=== PATIENT | female | born 1945 | race Caucasian/White ===

== ENCOUNTER 2022-10-05 15:25 | Emergency (ER) | payer MEDICARE, OTHER ==
[~2022-10-05] VITALS: Ht 165.1 cm; Wt 77.0 kg
[~2022-10-05 15:25] MED LIST: ACET-2319 PO; ALBU90AE2 IH; ASPI-1071 PO; BUDE10.2 PO; CLOP75TA15 PO; HYDR25TA4 PO; LEVO75TA7 PO; LISI40TA13 PO; MELATONIN10 MG PO; PRAV40TA3 PO
[2022-10-05] MEDS ORDERED: albuterol 2.5 MG/3 ML nebule NEB ONE (15:55)
[2022-10-05 16:31] VITALS: TEMP 98.9
[2022-10-05 16:40] VITALS: PULSE 82; RESP 16; O2SAT 94
[2022-10-05 16:42] VITALS: PULSE 81; RESP 18; O2SAT 98
[2022-10-05 16:48] LABS: BASOPHILS % (AUTO) 0.4 % (0-1); EOSINOPHILS % (AUTO) 0.4 % (0-6); HEMATOCRIT 33.1 % (35.0-45.0); HEMOGLOBIN 10.8 g/dl (12.0-16.0); LYMPHOCYTES # (AUTO) 0.3 X10'3 (1.1-4.8); LYMPHOCYTES % (AUTO) 5.3 % (21-51); MEAN CORPUSCULAR HEMOGLOBIN 27.6 PG (27.0-31.0); MEAN CORPUSCULAR HGB CONC 32.6 g/dL (33.0-36.5); MEAN CORPUSCULAR VOLUME 84.6 FL (78-98); MEAN PLATELET VOLUME 9.2 FL (7.4-10.4); MONOCYTES # (AUTO) 0.5 X10'3 (0-0.9); MONOCYTES % (AUTO) 9.3 % (2-12); NEUTROPHILS # (AUTO) 4.8 X10'3 (1.8-7.7); NEUTROPHILS % (AUTO) 84.6 % (42-75); PLATELET COUNT 145 X10'3 (140-440); RED BLOOD COUNT 3.92 X10'6 (4.20-5.60); RED CELL DISTRIBUTION WIDTH 15.1 % (11.5-14.5); WHITE BLOOD COUNT 5.7 X10'3 (4.5-11.0)
[2022-10-05 16:58] LABS: ALANINE AMINOTRANSFERASE 13 U/L (12-78); ALBUMIN 3.2 G/DL (3.4-5.0); ALBUMIN/GLOBULIN RATIO 0.9 (1.1-1.5); ALKALINE PHOSPHATASE 102 IU/L (46-116); ANION GAP 9 (8-16); ASPARTATE AMINO TRANSFERASE 15 U/L (10-37); BILIRUBIN,TOTAL 1.4 MG/DL (0.1-1.0); BLOOD UREA NITROGEN 18 MG/DL (7-18); BUN/CREATININE RATIO 16.7 (10.0-20.0); CHLORIDE 100 MMOL/L (99-107); CREATININE 1.08 MG/DL (0.40-0.90); GLUCOSE 109 MG/DL (70-104); POTASSIUM 4.3 MMOL/L (3.5-5.1); SODIUM 134 MMOL/L (135-145); TOTAL CARBON DIOXIDE 25.2 MMOL/L (24-32); TOTAL PROTEIN 6.6 G/DL (6.4-8.2); eGFR 49 ML/MIN
[2022-10-05] MEDS ORDERED: dexamethasone sod phosphate 10mg/ml inj IV STA (17:10)
[2022-10-05] MEDS ORDERED: ALBU8HFA PO (17:25)
[2022-10-05] MEDS ORDERED: AZIT250T PO (17:25)
[2022-10-05] MEDS ORDERED: PRED20TA PO (17:25)
[2022-10-05] MEDS ORDERED: BUDE180A INH (17:25)
[2022-10-05 17:52] LABS: CLARITY,URINE SLIGHTLY CLOUDY (Clear); COLOR,URINE YELLOW (Yellow); GLUCOSE, URINE NEGATIVE (Neg); KETONES,URINE NEGATIVE (Neg); LEUKOCYTE ESTERASE ,URINE TRACE (Neg); NITRITES, URINE NEGATIVE (Neg); OCCULT BLOOD,URINE SMALL (Neg); PROTEIN,URINE TRACE mg/dl (Neg); UROBILINOGEN,URINE 0.2 E.U/dL (0.2-1.0)
[2022-10-05 17:58] VITALS: BP 146/54; PULSE 89; RESP 20; O2SAT 92
[2022-10-05 18:13] LABS: BACTERIA,URINE FEW /HPF (Neg); SQUAMOUS EPITHELIAL CELL,UR FEW /LPF (FEW); TRANSITIONAL EPI CELLS,URINE FEW /HPF
[2022-10-05 18:37] LABS: UA COLLECTION TYPE NON-SPECIFIED
== END 2022-10-05 18:00 | disposition home or self-care (01) ==
LOC: ER 15:26
DX: U07.1 COVID-19 (principal); J44.9 Chronic obstructive pulmonary disease, unspecified; Z91.041 Radiographic dye allergy status; Z88.6 Allergy status to analgesic agent; Z79.82 Long term (current) use of aspirin; Z79.899 Other long term (current) drug therapy
CPT/HCPCS: 36415; 71045; 80053; 81001; 83880; 85025; 87088; 94640; 96374; 99284; J1100; 94760

== ENCOUNTER 2023-09-08 14:52 | Emergency (ER) | payer MEDICARE, OTHER ==
[~2023-09-08] VITALS: Ht 160 cm; Wt 70.0 kg
[~2023-09-08 14:52] MED LIST changes: -ALBU90AE2 IH; +ALBU90AE3 IH; +BUDE180A INH
[2023-09-08 14:54] VITALS: TEMP 98
[2023-09-08 15:34] LABS: BASOPHILS # (AUTO) 0.1 X10'3 (0-0.2); BASOPHILS % (AUTO) 1.3 % (0-1); EOSINOPHILS # (AUTO) 0.1 X10'3 (0-0.9); EOSINOPHILS % (AUTO) 1.1 % (0-6); HEMATOCRIT 31.2 % (35.0-45.0); LYMPHOCYTES # (AUTO) 1.1 X10'3 (1.1-4.8); LYMPHOCYTES % (AUTO) 17.5 % (21-51); MEAN CORPUSCULAR HEMOGLOBIN 28.1 PG (27.0-31.0); MEAN CORPUSCULAR HGB CONC 32.2 g/dL (33.0-36.5); MEAN CORPUSCULAR VOLUME 87.2 FL (78-98); MEAN PLATELET VOLUME 9.1 FL (7.4-10.4); MONOCYTES # (AUTO) 0.5 X10'3 (0-0.9); MONOCYTES % (AUTO) 7.9 % (2-12); NEUTROPHILS # (AUTO) 4.7 X10'3 (1.8-7.7); NEUTROPHILS % (AUTO) 72.2 % (42-75); PLATELET COUNT 166 X10'3 (140-440); RED BLOOD COUNT 3.58 X10'6 (4.20-5.60); RED CELL DISTRIBUTION WIDTH 17.6 % (11.5-14.5); WHITE BLOOD COUNT 6.5 X10'3 (4.5-11.0)
[2023-09-08 15:53] LABS: ALBUMIN 3.4 G/DL (3.4-5.0); ANION GAP 9 (8-16); BLOOD UREA NITROGEN 22 MG/DL (7-18); BUN/CREATININE RATIO 21.4 (10.0-20.0); CALCIUM 8.8 MG/DL (8.5-10.1); CHLORIDE 108 MMOL/L (99-107); CREATININE 1.03 MG/DL (0.40-0.90); GLUCOSE 104 MG/DL (70-104); LIPASE 38 U/L (16-77); MAGNESIUM 2.1 MG/DL (1.5-2.4); SODIUM 142 MMOL/L (135-145); TOTAL CARBON DIOXIDE 24.9 MMOL/L (24-32); eCRCL 37 ML/MIN; eGFR 52 ML/MIN
[2023-09-08] MEDS ORDERED: APIX5TAB3 PO (16:10)
[2023-09-08] MEDS ORDERED: MELO-102 PO (16:10)
[2023-09-08] MEDS ORDERED: ATOR40TA PO (16:10)
[2023-09-08] MEDS: normal saline 1000ML IV soln IVB ONE (16:19)
[2023-09-08 16:40] LABS: BILIRUBIN,URINE SMALL (Neg); CLARITY,URINE CLOUDY (Clear); COLOR,URINE YELLOW (Yellow); GLUCOSE, URINE 100 mg/dl (Neg); KETONES,URINE TRACE mg/dl (Neg); LEUKOCYTE ESTERASE ,URINE MODERATE (Neg); NITRITES, URINE POSITIVE (Neg); OCCULT BLOOD,URINE MODERATE (Neg); PH,URINE 5.5 (4.8-8.0); PROTEIN,URINE 100 mg/dl (Neg); UROBILINOGEN,URINE 0.2 E.U/dL (0.2-1.0)
[2023-09-08 16:43] LABS: UA COLLECTION TYPE VOIDED
[2023-09-08 16:46] LABS: SQUAMOUS EPITHELIAL CELL,UR MANY /LPF (FEW); WBC,URINE TNTC /HPF (0-4)
[2023-09-08 16:48] LABS: BACTERIA,URINE 3+ /HPF (Neg)
[2023-09-08 16:49] LABS: RBC,URINE 20-50 /HPF (0-2)
[2023-09-08] MEDS ORDERED: FOSFOMYCIN TROMETHAMINE 3 GM PACKET PO ONE (17:15)
[2023-09-08] MEDS: lisinopril 10 MG tablet PO ONE (17:34)
[2023-09-08] MEDS: sulfamethoxazole/trimethoprim DS (800/160mg) tablet PO ONE (17:37)
[2023-09-08] MEDS: phenazopyridine 100mg tablet PO ONE (17:40)
[2023-09-08] MEDS ORDERED: PHEN-786 PO (17:47)
[2023-09-08] MEDS ORDERED: SULF1TAB49 PO (17:47)
[2023-09-08 18:01] VITALS: BP 222/92; PULSE 65; RESP 16; O2SAT 93
== END 2023-09-08 18:00 | disposition home or self-care (01) ==
LOC: ER 14:53
DX: N39.0 Urinary tract infection, site not specified (principal); I10 Essential (primary) hypertension; Z91.041 Radiographic dye allergy status; Z79.899 Other long term (current) drug therapy
CPT/HCPCS: 36415; 71045; 80048; 81001; 83690; 83735; 84484; 85025; 93005; 99285; J7030

== ENCOUNTER 2024-11-03 11:23 | Emergency (ER) | payer MEDICARE, OTHER ==
[~2024-11-03] VITALS: Ht 160 cm; Wt 68.0 kg
[~2024-11-03 11:23] MED LIST changes: +APIX5TAB3 PO; -ASPI-1071 PO; +ATOR40TA PO; -BUDE180A INH; +BUDE180A5 INH; -CLOP75TA15 PO; -LISI40TA13 PO; +LISI40TA20 PO; +MELO-102 PO; +PHEN-786 PO; -PRAV40TA3 PO
[2024-11-03 11:28] VITALS: TEMP 97.8
--- NOTE | 2024-11-03 12:38 | Physician Documentation ---
History of Present Illness ~ Chief Complaint: Hip pain Stated Complaint: FALL ON THINNERS Time Seen by MD: 11:42 Primary Medical Doctor: MD Douglas Larry Mcclellan Source: patient, family Mode of Arrival: POV, Ambulatory Exam Limitations: no limitations HPI Patient who had a mechanical fall yesterday. Here with right hip and right knee pain. She is still walking on it. She does take blood thinners for history of stroke. Also has AFib. Daughter is at bedside who is an RN. Tetanus within 5 Years?: Yes Medication Reconciliation Allergies: Coded Allergies: iodine (Verified Allergy, Intermediate, 11/03/24) Scheduled Apixaban (Eliquis), 1 TAB PO DAILY, (Reported) Atorvastatin Calcium* (Lipitor*), 1 TAB PO DAILY, (Reported) Budesonide (Pulmicort Flexhaler), 2 PUFFS INH Q12H Hydrochlorothiazide (Hydrochlorothiazide), 1 TAB PO DAILY, (Reported) Levothyroxine Sodium (Levothyroxine Sodium), 1 TAB PO DAILY, (Reported) Lisinopril* (Lisinopril*), 0.5 TAB PO DAILY, (Reported) Meloxicam (Meloxicam), 1 TAB PO DAILY, (Reported) Scheduled PRN Acetaminophen/Dp-Hydram Hcl (Tylenol Pm), Unknown Dose PO HS PRN for sleep, (Reported) Albuterol Sulfate (Proair Digihaler), 2 PUFFS IH for cough & congestion, (Reported) Budesonide/Formoterol Fumarate (Symbicort 160-4.5 Mcg Inhaler), 2 PUFFS PO BID PRN for cough & congestion, (Reported) Melatonin (Melatonin), Unknown Dose PO HS PRN for sleep, (Reported) Phenazopyridine Hcl (Pyridium tablet), 1 TAB PO Q8H PRN for urinary burning Past Medical History Past Medical History: Hypertension, Breast Cancer Past Surgical History: noncontributory Alcohol Use: None Drug Use: none Review of Systems All Other Systems at this time: Reviewed and Negative Physical Exam Vital Signs: Temperature: 97.8, Heart Rate: 82, Respiratory Rate: 16, BP: 183/63, Pulse Oximetry: 96, Weight: 67.950 Oxygen Flow Rate: 0 General Appearance: alert Head: no evidence of injury Face Old bruising to the anterior face from a fall 7 weeks ago. Pupils/EOM/Fundus: PERRLA, EOM intact Neck: full range of motion Respiratory: no respiratory distress Chest: normal inspection Cardiovascular: normal peripheral pulses Extremities Right leg: Knee with mild anterior ecchymosis but nontender, negative valgus and varus, right hip is nontender without obvious deformity, no shortening or external rotation of the leg Progress Results/Orders Results/Orders Orders - MANDIE QUINTANA MD Hip Unilateral 2 Views (11/03/24 11:49) Knee Limited (Ap/Lat) (11/03/24 11:49) Completed Orders - MANDIE QUINTANA MD Hip Unilateral 2 Views (11/03/24 11:49) Knee Limited (Ap/Lat) (11/03/24 11:49) Vital Signs 11/03/24 11/03/24 11/03/24 11/03/24 11:28 11:37 12:51 12:58 Temp 97.8 Pulse 82 75 70 Resp 16 16 16 16 B/P (MAP) 183/63 154/112 (126) 145/55 (85) Pulse Ox 96 96 98 O2 Flow Rate 0 0 0 Medical Decision Making Additional Comment X-ray of hip and knee are negative for fracture. Independently reviewed by me and confirmed by Radiology. Likely hips sprain and knee contusion. Discharged home in good condition with family. Follow up with PCP in 7-10 days if not improving or return here if new or worsening symptoms. Departure Disposition: 01 HOME / SELF CARE / HOMELESS Impression: Primary Impression: Sprain of right hip Qualified Codes: S73.101A - Unspecified sprain of right hip, initial encount er Additional Impression: Contusion of right knee Qualified Codes: S80.01XA - Contusion of right knee, initial encounter Condition: Stable Discharge Instructions: Hip Sprain Additional Instructions: Follow up with your doctor in 1-2 weeks if not improving. Return if worsening. Referrals: NO PRIMARY CARE PROVIDER (PCP) Signature Scribe Signature: No scribe used Attestation: No scribe used MANDIE QUINTANA MD Nov 03, 2024 12:38
--- NOTE | 2024-11-03 12:46 | RADIOLOGY REPORT ---
EXAM: DI KNEE LIMITED (AP/LAT) CLINICAL INDICATION: RIGHT KNEE PAIN AFTER FALL TECHNIQUE: DI KNEE LIMITED (AP/LAT) Comparison: None FINDINGS/IMPRESSION: There is no evidence of acute fracture or dislocation. Severe right knee tricompartmental joint space narrowing. The alignment is anatomical. There is no radiopaque foreign body.
--- NOTE | 2024-11-03 12:47 | RADIOLOGY REPORT ---
Right HIP RADIOGRAPH. CLINICAL INDICATION: RIGHT HIP PAIN AFTER FALL TECHNIQUE: 4 views of the right hip were obtained. FINDINGS: There is no evidence of fracture, subluxation or dislocation. Moderate right hip osteoarthr itis. The bony mineralization is normal.No radiopaque foreign body is identified. IMPRESSION: 1. No evidence of acute bony injury.
[2024-11-03 13:05] VITALS: BP 145/55; PULSE 72; RESP 16; O2SAT 98
== END 2024-11-03 13:09 | disposition home or self-care (01) ==
LOC: ER 11:24
DX: S73.101A Unspecified sprain of right hip, initial encounter (principal); S80.01XA Contusion of right knee, initial encounter; I10 Essential (primary) hypertension; I48.91 Unspecified atrial fibrillation; Z79.01 Long term (current) use of anticoagulants; Z85.3 Personal history of malignant neoplasm of breast; Z86.73 Personal history of transient ischemic attack (TIA), and cerebral infarction without residual deficits; Z88.8 Allergy status to other drugs, medicaments and biological substances; W18.39XA Other fall on same level, initial encounter; Y93.89 Activity, other specified; Y92.89 Other specified places as the place of occurrence of the external cause; Y99.8 Other external cause status
CPT/HCPCS: 73502; 73560; 99284

== ENCOUNTER 2024-12-07 09:36 | Emergency (ER) | payer MEDICARE ==
[~2024-12-07] VITALS: Ht 160 cm; Wt 69.9 kg
--- NOTE | 2024-12-07 09:52 | ELECTROCARDIOGRAPH REPORT ---
[facility] Test Date: 2024-12-07 Test Time: 09:49:21 Pat Name: MAE CHAVEZ Department: [facility]- Patient ID: [id number] Room: Gender: F Design Editor: : 1945 Requested By: BECK JAMESON Order Number: [id number] Reading MD: Dr. Rigoberto Leal Measurements Intervals [place] Rate: 72 P: 85 AL: 165 QRS: 98 QRSD: 149 T: 127 QT: 459 QTc: 503 Interpretive Statements Sinus rhythm RBBB and LPFB Abnormal T, consider ischemia, lateral leads Baseline wander in lead(s) II,aVF Electronically Signed On 12-07-2024 21:39:[address] Rigoberto Leal Please click the below link to view image of tracing.
--- NOTE | 2024-12-07 10:11 | RADIOLOGY REPORT ---
EXAM: CT CT HEAD INDICATION: fall on blood thinner TECHNIQUE: CT of the head without intravenous contrast. Radiation Dose : 1. Head: CT Dose: CTDI volume is 50.8 mGy. Dose-length product is 883 mGy*cm The dose indicators for CT are the volume Computed Tomography (CT) Dose Index (CTDIvol) and the Dose Length Product (DLP), and are measured in units of mGy and mGy-cm, respectively. These indicators are not patient dose, but values generated from the CT scanner acquisition factors. The report includes radiation exposure data for exposures received during this examination. COMPARISON: CT CT CERVICAL SPINE on DOS: 12/07/24, CT CT FACIAL BONES/SOFT TISSUE on DOS: 12/07/24, MRI HEAD on DOS: 05/01/20, CT STROKE ALERT on DOS: 04/30/20 FINDINGS: There is no evidence of acute intracranial hemorrhage, extra-axial collection, mass effect, midline shift, herniation or hydrocephalus. The ventricles, sulci and cisterns are age appropriate. The gilmore-white differentiation is intact. Patchy periventricular and subcortical white matter hypoattenuation is nonspecific but may be related to small vessel ischemic disease. The visualized paranasal sinuses and mastoid air cells are clear. The surrounding soft tissues and osseous structures are unremarkable. IMPRESSION: No acute intracranial abnormality. Radiation optimization: All CT scans at this facility use at least one of these dose optimization techniques: automated exposure control mA and/or kV adjustment per patient size (includes targeted exams where dose is matched to clinical indication) or iterative reconstruction.
--- NOTE | 2024-12-07 10:23 | RADIOLOGY REPORT ---
EXAM: CT CT CERVICAL SPINE INDICATION: fall on blood thinner EXAM DATE: 12/07/2024 09:53 AM COMPARISON: None. TECHNIQUE: Multiple axial CT images of the cervical spine were obtained using bone algorithm. Sagittal and coronal reformatting was done. Bone and soft tissue windows were reviewed. Radiation Dose Information: CT Dose: CTDI volume is 20.4 mGy. Dose-length product is 410.4 mGy*cm FINDINGS: There is 4 mm anterolisthesis at C4-C5. Reversal of the cervical lordosis is present. No acute cervical spine fracture is identified. The vertebral body heights are intact. No suspicious osseous lesions are identified. There is multilevel intervertebral disc space narrowing, facet and uncovertebral hypertrophy. No significant spinal stenosis. Multilevel neural foraminal stenosis particularly on the right at C4-C5. There is no prevertebral soft tissue swelling. IMPRESSION: 1. No
[2024-12-07 10:29] LABS: MEAN PLATELET VOLUME 7.6 FL (7.4-10.4); RED CELL DISTRIBUTION WIDTH 15.5 % (11.5-14.5)
[2024-12-07 10:43] LABS: CREATININE 0.81 MG/DL (0.40-0.90); TOTAL CARBON DIOXIDE 27.3 MMOL/L (24-32); eCRCL 46 ML/MIN; eGFR 68 ML/MIN
[2024-12-07 10:44] LABS: APTT 31 SECONDS (22-32); INR 1.0 INR
--- NOTE | 2024-12-07 10:49 | RADIOLOGY REPORT ---
CLINICAL INFORMATION: Fall injury. Trauma. TECHNIQUE: Axial CT images of the maxillofacial region were obtained without contrast. Coronal and sagittal reformatted images were obtained, reviewed, and stored. One or more of the following dose reduction techniques were used: Automated exposure control. Adjustment of mA and/or kV according to patient size. CTDIvol = 54.61 mGy DLP = 932.74 mGy-cm COMPARISON: No prior maxillofacial CT. FINDINGS: The pterygoid plates and zygomatic arches are intact. Sinus daley and orbital daley are intact. Nasal bones and mandible are intact. No evidence of facial bone fracture. No acute abnormality identified in the orbits. Globes and orbital structures appear intact. No periorbital or orbital hemorrhage. No significant proptosis. Bilateral lens prostheses incidentally noted. Paranasal sinuses are clear. No significant soft tissue abnormality identified. IMPRESSION: 1. No evidence of acute facial bone fracture. 2. No other acute abnormality identified.
--- NOTE | 2024-12-07 10:51 | RADIOLOGY REPORT ---
CHEST RADIOGRAPH Indication: CP Technique: Single frontal view of the chest was obtained COMPARISON: DI CHEST,SINGLE VIEW on DOS: 09/08/23, DI CHEST,SINGLE VIEW on DOS: 10/05/22, CHEST,SINGLE VIEW on DOS: 04/30/20 FINDINGS: Lines and Tubes: None Lungs: Clear Pleura: No effusion. No pneumothorax. Cardiomediastinal contours: Unremarkable Bones: Unremarkable IMPRESSION: No acute disease.
[2024-12-07] MEDS: metoclopramide 5 mg/ml inj IV ONE (10:52)
--- NOTE | 2024-12-07 10:52 | RADIOLOGY REPORT ---
CLINICAL INDICATION: LEFT KNEE PAIN TECHNIQUE: DI KNEE, COMP 4 VW MIN left Comparison: DI KNEE LIMITED (AP/LAT) on DOS: 11/03/24 FINDINGS/IMPRESSION: : There is no evidence of acute fracture or dislocation. Soft tissues are unremarkable. Left knee arthroplasty.
[2024-12-07] MEDS: morphine 4 MG/ML inj SYRINge IV ONE (10:53)
[2024-12-07 10:54] LABS: PRO BRAIN NATRIURETIC PEPTIDE 2625 PG/ML (0-450)
[2024-12-07 10:59] VITALS: TEMP 98.4
[2024-12-07] MEDS ORDERED: LIDOcaine 1% w/epiNEPHrine 1:200,000 30ml vial SQ ONE (12:10)
[2024-12-07] MEDS: LIDOcaine 1% W/epiNEPHrine 1:100,000 20ml vial SQ ONE (12:19)
--- NOTE | 2024-12-07 14:21 | Physician Documentation ---
History of Present Illness ~ Chief Complaint: Trauma Level 2 Stated Complaint: FALL HEAD STRIKE Time Seen by MD: 10:00 OK to notify your PCP?: Yes Primary Medical Doctor: MD Misael Mcclellan Mode of Arrival: EMS HPI 79-year-old female with a history of taking Eliquis for stroke in 2020, hypertension hypothyroid and dyslipidemia was brought to the emergency room by ambulance because she fell ground level after left knee gave way. No lots of consciousness. Left side of the face has skin tear and laceration. No neck pain. The patient told me that she did not pass out. She has been having frequent falls. Tetanus within 5 years?: Yes Medication Reconciliation Allergies: Coded Allergies: iodine (Verified Allergy, Intermediate, 11/03/24) Scheduled Apixaban (Eliquis), 1 TAB PO DAILY, (Reported) Atorvastatin Calcium* (Lipitor*), 1 TAB PO DAILY, (Reported) Budesonide (Pulmicort Flexhaler), 2 PUFFS INH Q12H Hydrochlorothiazide (Hydrochlorothiazide), 1 TAB PO DAILY, (Reported) Levothyroxine Sodium (Levothyroxine Sodium), 1 TAB PO DAILY, (Reported) Lisinopril* (Lisinopril*), 0.5 TAB PO DAILY, (Reported) Meloxicam (Meloxicam), 1 TAB PO DAILY, (Reported) Scheduled PRN Acetaminophen/Dp-Hydram Hcl (Tylenol Pm), Unknown Dose PO HS PRN for sleep, (Reported) Albuterol Sulfate (Proair Digihaler), 2 PUFFS IH for cough & congestion, (Reported) Budesonide/Formoterol Fumarate (Symbicort 160-4.5 Mcg Inhaler), 2 PUFFS PO BID PRN for cough & congestion, (Reported) Hydrocodone Bit/Acetaminophen 5/325 MG ([place] 5/325 MG), 1 TAB PO Q6H PRN for pain Hydrocodone Bit/Acetaminophen 5/325 MG ([place] 5/325 MG), 1-2 TAB PO Q4HPRN PRN for pain Melatonin (Melatonin), Unknown Dose PO HS PRN for sleep, (Reported) Phenazopyridine Hcl (Pyridium tablet), 1 TAB PO Q8H PRN for urinary burning Past Medical History Past Medical History: Hypertension, Breast Cancer Past Surgical History: noncontributory Alcohol Use: None Drug Use: none Review of Systems ROS As stated above in the HPI, otherwise all systems are reviewed and negative. Physical Exam Vital Signs: Temperature: 98.4, Source: Oral, Heart Rate: 79, Respiratory Rate: 18, BP: 171/70, Pulse Oximetry: 97, Weight: 70.200 Oxygen Flow Rate: 0 Physical Exam Reviewed vital signs and they are well within normal range. Const: Not in acute cardiopulmonary distress but in fair amount of pain. Head: There is laceration and skin tear in the left side of the forehead and cheek. Eyes: Normal Conjunctiva, JUAN EOMI ENT: Normal External Ears, Nose and Mouth. Mucous membrane Neck: Full range of motion. No meningismus Resp: Clear to auscultation bilaterally. Normal work of breathing Cardio: Regular rate and rhythm, no murmurs. Skin well perfused, normal heart rate Abd: Soft, non-tender, non-distended. Normal bowel sounds. No rebound or guarding Skin: No petechiae or rashes. Warm and dry Back: No midline or flank tenderness Ext: No cyanosis, or edema, abrasion and contusion over the front of the knee. Left side. Range of movement is good. Neuro: Awake and alert Psych: Normal Mood and Affect Progress Results/Orders Results/Orders Orders - BECK JAMESON MD Chest,Single View (12/07/24 09:45) Monitor (12/07/24 09:45) Saline Lock (12/07/24 09:45) Oxygen (12/07/24 09:45) Electrocardiogram (12/07/24 09:45) Ct Head (12/07/24 09:45) Ct Cervical Spine (12/07/24 09:45) Knee, Complete (12/07/24 09:45) Completed Orders - BECK JAMESON MD Chest,Single View (12/07/24 09:45) Cbc/Diff (12/07/24 09:45) PBNP (12/07/24 09:45) Electrocardiogram (12/07/24 09:45) Ct Head (12/07/24 09:45) Ct Cervical Spine (12/07/24 09:45) Knee, Complete (12/07/24 09:45) PTT (12/07/24 09:59) Pt Inr (12/07/24 09:59) CMP (12/07/24 09:59) Morphine 4mg/Ml Inj. (Morphine Inj.) (12/07/24 10:40) Metoclopramide Inj (Reglan Inj) (12/07/24 10:40) Lidocaine 1% W/Epi 1:100,000 (Xylocaine (12/07/24 12:20) Ceftriaxone/K2p-Inamlfpn 1gm (Rocephin 1 (12/07/24 14:30) Hydrocodone/Apap 10/325 ([place] 10/325mg (12/07/24 14:30) Laboratory Tests Test 12/07/24 10:13 White Blood Count 6.5 Red Blood Count 3.65 L Hemoglobin 11.1 L Hematocrit 33.0 L Mean Corpuscular Volume 90.4 Mean Corpuscular Hemoglobin 30.5 Mean Corpuscular Hemoglobin Concent 33.7 Red Cell Distribution Width 15.5 H Platelet Count 269 Mean Platelet Volume 7.6 Neutrophils (%) (Auto) 78.3 H Lymphocytes (%) (Auto) 12.0 L Monocytes (%) (Auto) 7.9 Eosinophils (%) (Auto) 0.9 Basophils (%) (Auto) 0.9 Neutrophils # (Auto) 5.1 Lymphocytes # (Auto) 0.8 L Monocytes # (Auto) 0.5 Eosinophils # (Auto) 0.1 Basophils # (Auto) 0.1 CBC Comment Prothrombin Time 10.3 INR International Normalized Ratio 1.0 Activated Partial Thromboplast Time 31 Coagulation Comments Sodium Level 134 L Potassium Level 4.0 Chloride Level 100 Carbon Dioxide Level 27.3 Anion Gap 7 L Blood Urea Nitrogen 23 H Creatinine 0.81 Estimated GFR/1.73 m2 68 BUN/Creatinine Ratio 28.4 H Glucose Level 95 Calcium Level 8.6 Total Bilirubin 0.9 Aspartate Amino Transf (AST/SGOT) 41 H Alanine Aminotransferase (ALT/SGPT) 28 Alkaline Phosphatase 137 H Pro-B-Type Natriuretic Peptide 2625 H Total Protein 7.0 Albumin 2.8 L Globulin 4.2 Albumin/Globulin Ratio 0.7 L Chemistry Comments Medical Decision Making Findings ER Course/Med. Decision Making REVIEW of RECORD(S): Previous medical records here and/or external medical records, such as that provided directly by the patient, by EMS and/or outside medical facilities, if available, were reviewed. COMORBIDITIES Eliquis, hypertension MDM During the physical examination, the findings suggestive of acute life- threatening condition such as JVD, tracheal deviation, acidotic breathing, noisy stridorous breath sounds, pulses paradoxus, muffled heart sounds, unequal breath sounds, abdominal rigidity and rebound tenderness, focal neurological deficits, cool clammy skin, severe hypotension, severe tachycardia or bradycardia are absent. Patient presenting for fall and trauma or injury. Vital signs reviewed. EKG done at 09:49 hours shows sinus rhythm with a RBBB and LP FB. No acute ischemic changes. Mildly elevated QTC. Patient is hemodynamically stable and does not meet SIRS criteria. Patient appears nontoxic on exam. CT scan of the head and neck and facial bones as well as the left knee x-rays not showing any bony injury, subluxation or dislocation. The patient has a very irregular skin laceration and skin tear with gaping skin area because skin loss on the left temporal area and also skin tear over the left cheek. The skin laceration tear over the left temporal area was infiltrated with lidocaine with epinephrine and the gap was minimized with Vicryl suture and then Steri-Strips applied to keep the wound covered with available skin. The rolled up skin edges was even out and put in place. Then 0 found dressing was applied. The skin laceration over the cheek left side was also cleaned up and the rolled up came HL was even out and Steri-Strips applied. Patient tolerated the procedure well. Patient did well upon road test. TREATMENT/DISPOSITION: The patient's presentation is most consistent with contusion with skin laceration of the left side of the face after a mechanical fall Prior to discharge I independently reviewed the patients past medical history, clinical risk factors, comorbidities, and social determinants of health and diagnostic studies. The patient appears to be a safe discharge home with close outpatient PCP follow-up I had extensive discussion with patient regarding management, disposition and follow up. Potential symptom etiology was discussed, and shared decision making occurred. They will return immediately if symptoms worsen, do not improve, or they have any further concerns. Prior to discharge all questions were addressed. The patient is aware that the purpose of this visit was to screen for an acute medical emergency requiring emergent stabilization. Chronic and occult conditions, including malignancies, have not been ruled out. If patient is unable to arrange follow-up as stated in the discharge instructions and further discussed with the patient directly, or their symptoms worsen/become more concerning, they are to return to the ER for reassessment immediately. Prior to leaving the department, the patient has a plan for discharge, has decision making capacity, and acknowledges an understanding of the verbal and written discharge instructions. SOCIAL DETERMINANTS: Patient demonstrates no obvious challenges to following up as an outpatient although did consider whether patient had any barriers to access care including homelessness, Food insecurity, Mental health, Substance abuse, Disabilities, Limited access to medical care, Difficulty finding transport, Insurance issues, Refusal of care or testing due to cost concerns. MEDICAL SCREENING: I have discussed with the patient the non-definitive nature of the emergency screening exam, diagnosis and the possibility of a variety of conditions which may present in atypically benign fashion and stressed the importance of close follow-up for definitive diagnosis and treatment. We discussed signs and symptoms that should be watched for which might indicate a more serious or new condition that would benefit from emergency reevaluation and the patient has verbalized understanding to this and my other detailed discharge instructions and promises compliance. I have referred him back to his primary physician of course for a more detailed evaluation and more definitive diagnoses. DISCLAIMER: Inadvertent spelling and grammatical errors are likely due to EMR/dictation software use and do not reflect on the overall quality of patient care. Note that the electronic time recorded on this note does not necessarily reflect the actual time of the patient encounter. Departure Disposition: 01 HOME / SELF CARE / HOMELESS Impression: Primary Impression: Laceration of skin of face Additional Impressions: Contusion of left knee Fall with injury Condition: Stable Discharge Instructions: Fall Prevention in the Home, Adult, Oold-jb-Ujce, Understanding Your Risk for Falls Additional Instructions: Thank you for coming to our Emergency Department today. Please keep the dressing/stiristrip for at least five days. Please follow the falls prevention instructions. Please ask your nurse or provider if you have questions about your care today and do not leave until all your questions have been answered. Please use any medications given as directed and follow-up with your doctor (or the doctor you were referred to) in the next 1-3 days. Your primary care doctor can help to coordinate outpatient specialty care and provide authorization for specialty referral as needed. If you do not have a primary care doctor you may follow up at a [facility]. You may also use motrin and tylenol as needed for fever and/or pain unless instructed otherwise by your provider or nurse. Indications for more urgent follow-up have been discussed, but you may return to the Emergency Department at ANY time for any worrisome or worsening symptoms. County Facilities: County Facilities: [facility]: [facility] [place] Address:[address] [place] [address] [facility]: [place] Address:[address] [place] [address] [facility]: [facility] Address:[address] [place] [address] [facility] Address:[address] [place] [address] Registration Billing Pharmacy Referrals [facility] Address:[address] [place] [id number] Referrals: NO PRIMARY CARE PROVIDER (PCP) Prescriptions Hydrocodone Bit/Acetaminophen 5/325 MG ([place] 5/325 MG) 5 Mg/325 Mg Tablet 1-2 TAB PO Q4HPRN PRN for pain, #40 TAB Prov: BECK JAMESON MD 12/07/24 Hydrocodone Bit/Acetaminophen 5/325 MG ([place] 5/325 MG) 5 Mg/325 Mg Tablet 1 TAB PO Q6H PRN for pain, #20 TAB Prov: BECK JAMESON MD 12/07/24 Signature Scribe Signature: x Attestation: x BECK JAMESON MD Dec 07, 2024 14:21
[2024-12-07] MEDS ORDERED: HYDR-3965 PO ×2 (14:25→15:27)
[2024-12-07] MEDS: HYDROcodone/acetaminophen 10/325mg tab PO ONE (14:37)
[2024-12-07] MEDS: CefTRIAXone/D5W-Rocephin 1gm 50 ML IV ONE (14:37)
[2024-12-07 15:29] VITALS: BP 184/75; PULSE 69; RESP 18; O2SAT 98
== END 2024-12-07 15:30 | disposition home or self-care (01) ==
LOC: ER 09:37
DX: S01.81XA Laceration without foreign body of other part of head, initial encounter (principal); S80.02XA Contusion of left knee, initial encounter; E03.9 Hypothyroidism, unspecified; I10 Essential (primary) hypertension; E78.5 Hyperlipidemia, unspecified; Z85.3 Personal history of malignant neoplasm of breast; Z86.73 Personal history of transient ischemic attack (TIA), and cerebral infarction without residual deficits; Z88.8 Allergy status to other drugs, medicaments and biological substances; Z79.01 Long term (current) use of anticoagulants; Z79.899 Other long term (current) drug therapy; W18.30XA Fall on same level, unspecified, initial encounter; Y93.89 Activity, other specified; Y92.89 Other specified places as the place of occurrence of the external cause; Y99.8 Other external cause status
CPT/HCPCS: 12011; 70450; 70486; 71045; 72125; 73564; 80053; 83880; 85025; 85610; 85730; 93005; 96365; 96375; 99285; A6223; A6258; A6402; J0696; J2270; J2765; J7030; Z7610; A6449